=== PATIENT | female | born 1995 | race African-American/Black ===

== ENCOUNTER 2022-12-11 22:44 | Emergency (ER) | payer MEDICAID, OTHER ==
[~2022-12-11] VITALS: Ht 165.1 cm; Wt 84.0 kg
[2022-12-11 23:03] VITALS: BP 111/73
[2022-12-12] MEDS ORDERED: ACETAMINOPHEN 325MG TABLET PO ONE (01:30)
== END 2022-12-12 02:45 | disposition home or self-care (01) ==
LOC: ER 22:44
DX: R51.9 Headache, unspecified (principal); M54.2 Cervicalgia
CPT/HCPCS: 81025; 99284

== ENCOUNTER 2024-08-05 10:06 | Emergency (ER) | payer MEDICAID, OTHER ==
[~2024-08-05] VITALS: Ht 165.1 cm; Wt 92.0 kg
[2024-08-05 10:31] VITALS: O2SAT 100
[2024-08-05 11:30] LABS: BASOPHILS % 0.7 % (0.0-2.0); EOSINOPHILS % 2.7 % (0.0-5.0); HEMATOCRIT. 42.1 % (36.0-48.0); HEMOGLOBIN. 13.4 g/dL (12.0-16.0); LYMPHOCYTES % 43.9 % (20.0-50.0); MEAN CORPUSCULAR HEMOGLOBIN 26.5 pg (28.0-32.0); MEAN CORPUSCULAR HGB CONC 31.7 g/dL (31.0-37.0); MEAN CORPUSCULAR VOLUME 83.6 fL (81.0-99.0); MEAN PLATELET VOLUME 7.6 fl (7.4-10.4); NEUTROPHILS % 45.7 % (40.0-76.0); PLATELET 314 x1000/uL (130-400); RED BLOOD CELL COUNT 5.04 mill/uL (4.2-5.4); RED CELL DISTRIBUTION WIDTH 15.9 % (11.6-14.6); WHITE BLOOD COUNT 4.6 x1000/uL (4.5-11.0)
[2024-08-05 11:41] LABS: CHLORIDE 109 mEq/L (98-107); POTASSIUM 4.7 mEq/L (3.5-5.1); SODIUM 140 mEq/L (136-145)
[2024-08-05 11:42] LABS: CALCIUM 9.5 mg/dL (8.7-10.4); CARBON DIOXIDE 25 mEq/L (21-32)
[2024-08-05 11:44] LABS: HCG SCREEN NEGATIVE
[2024-08-05 11:47] LABS: CREATININE 0.9 mg/dL (0.6-1.0); GLUCOSE 101 mg/dL (70-105); UREA NITROGEN BLOOD 9 mg/dL (9-23)
[2024-08-05 11:49] LABS: ALANINE AMINOTRANSFERASE 22 IU/L (10-49); ALBUMIN 4.5 g/dL (3.2-4.8); ASPARTATE AMINOTRANSFERASE 19 IU/L (<34); BILIRUBIN DIRECT 0.2 mg/dL (<=3.0); BILIRUBIN TOTAL 0.7 mg/dL (0.1-1.0); PROTEIN TOTAL 7.3 g/dL (6.0-8.3)
[2024-08-05 11:55] LABS: CLARITY URINE CLEAR (CLEAR); COLOR URINE YELLOW (YELLOW); GLUCOSE URINE NEGATIVE (NEGATIVE); KETONES URINE NEGATIVE (NEGATIVE); LEUKOCYTE ESTERASE URINE 1+ (NEGATIVE); NITRITE URINE NEGATIVE (NEGATIVE); OCCULT BLOOD URINE TRACE (NEGATIVE); PROTEIN URINE NEGATIVE (NEGATIVE); SPECIFIC GRAVITY URINE 1.022 (1.005-1.030); UROBILINOGEN URINE 0.2 E.U./dL (0.2-1.0)
[2024-08-05] MEDS: ACETAMINOPHEN 325MG TABLET PO ONE (12:09)
[2024-08-05] MEDS: ONDANSETRON HCL 4MG TABLET PO ONE (12:10)
[2024-08-05 12:38] LABS: BACTERIA URINE 2+; RBC URINE 0-2 /hpf (0-2); SQUAMOUS EPITHELIAL CELL URINE 3+ /lpf (RARE/1+); YEAST URINE NONE SEEN
[2024-08-05] MEDS ORDERED: ONDA-239 PO (14:27)
[2024-08-05 14:51] VITALS: BP 128/77; PULSE 88; RESP 18; TEMP 37.05852; O2SAT 100
== END 2024-08-05 14:52 | disposition home or self-care (01) ==
LOC: ER 10:06
DX: B34.9 Viral infection, unspecified (principal)
CPT/HCPCS: 80076; 80048; 81003; 84703; 84702; 83690; 85025; 36415; 74176; 76830; 76856; 99284; Q0162; Z7610

== ENCOUNTER 2025-05-05 01:18 | Emergency (ER) | payer OTHER, MEDICAID ==
[~2025-05-05] VITALS: Ht 165.1 cm; Wt 87.0 kg
[~2025-05-05 01:18] MED LIST: ONDA-239 PO
[2025-05-05 01:23] VITALS: O2SAT 100
[2025-05-05] MEDS ORDERED: MORPHINE SULFATE 2 MG/ML INJ (NOT FOR IM USE) IV ONE (02:30)
[2025-05-05] MEDS ORDERED: SODIUM CHLORIDE 0.9% 500 ML IV ONE (02:30)
[2025-05-05 03:30] VITALS: BP 117/70; PULSE 80; RESP 18; TEMP 36.8; O2SAT 100
[2025-05-05 03:44] LABS: BASOPHILS % 0.3 % (0.0-2.0); EOSINOPHILS % 0.3 % (0.0-5.0); HEMATOCRIT. 37.2 % (36.0-48.0); HEMOGLOBIN. 11.9 g/dL (12.0-16.0); LYMPHOCYTES % 14.0 % (20.0-50.0); MEAN PLATELET VOLUME 7.7 fl (7.4-10.4); MONOCYTES % 5.0 % (2.0-8.0); NEUTROPHILS % 80.4 % (40.0-76.0); PLATELET 275 x1000/uL (130-400); RED BLOOD CELL COUNT 4.47 mill/uL (4.2-5.4); RED CELL DISTRIBUTION WIDTH 15.5 % (11.6-14.6)
[2025-05-05 03:57] LABS: CREATININE 0.7 mg/dL (0.6-1.0); UREA NITROGEN BLOOD 6 mg/dL (9-23)
[2025-05-05 03:59] LABS: ASPARTATE AMINOTRANSFERASE 11 IU/L (<34)
[2025-05-05 04:00] LABS: BILIRUBIN DIRECT < 0.1 mg/dL (<=3.0); BILIRUBIN TOTAL 0.3 mg/dL (0.1-1.0); PROTEIN TOTAL 6.4 g/dL (6.0-8.3)
[2025-05-05 04:19] LABS: B-HCG QUANTITATIVE 10754 mIU/mL (<6)
[2025-05-05 04:35] LABS: HCG SCREEN POSITIVE
[2025-05-05] MEDS ORDERED: RHO(D) IMMUNE GLOBULIN 300 MCG/SYR IM ONE (05:15)
== END 2025-05-05 04:45 | disposition left against medical advice (07) ==
LOC: ER 01:18
DX: O03.9 Complete or unspecified spontaneous abortion without complication (principal); R10.2 Pelvic and perineal pain; Z3A.12 12 weeks gestation of pregnancy
CPT/HCPCS: 80076; 80048; 84703; 84702; 85025; 86850; 86900; 86901; 36415; 88309; 88307; 76801; 76817; 99284; J7040; Z7610 ×2